=== PATIENT | male | born 1975 | race Caucasian/White ===

== ENCOUNTER 2020-05-24 00:46 | Emergency (ER) | payer OTHER ==
--- NOTE | 2020-05-24 01:50 | ER Document Report ---
ED Medical Screen (RME) - General Stated Complaint: PAIN LEFT SIDE OF BODY/LEFT ARM NUMBNESS Time Seen by Provider: 05/24/20 01:44 Mode of Arrival: Ambulatory Information source: Patient Notes: Patient is a 44-year-old male who is encouraged coming by his [id number] for worsening left arm numbness and worsening left leg pain. Patient states he has a history of a spinal surgery in the past and has had unexplained left arm numbness and pain in his left lower extremity. He notes that he has developed gradually a worsening of his numbness and a worsening of his lower extremity pain and notices that it is spastic and jerking. Notes that in [place] a few months ago he had a MRI of his cervical spine that was "the picture of health" patient notes that he is taking [place] but does not have any other medical problems. Patient states they normally give him IV Dilaudid in the hospital. General: Very uncomfortable appearing Cardiac: Tachycardia Pulmonary no respiratory distress Musculoskeletal "violent spastic motions of the left lower extremity also some dyskinetic movements of the left shoulder Psych: Odd affect I have greeted and performed a rapid initial assessment of this patient. A comprehensive ED assessment and evaluation of the patient, analysis of test results and completion of the medical decision making process will be conducted by additional ED providers. Physical Exam - Vital signs Vitals: Temp Pulse BP Pulse Ox 98 F 134 H 150/107 H 100 05/24/20 01:01 05/24/20 01:01 05/24/20 01:01 05/24/20 01:01 Course - Vital Signs Vital signs: Temp Pulse Resp BP Pulse Ox 98 F 134 H 150/107 H 100 05/24/20 01:01 05/24/20 01:01 05/24/20 01:01 05/24/20 01:01
[2020-05-24] MEDS ORDERED: OXYCODONE-ACETAMINOPHEN 5-325 MG TABLET PO ONE (01:52)
[2020-05-24 02:29] LABS: ABSOLUTE BASOPHILS # (AUTO) 0.1 10^3/uL (0.0-0.2); ABSOLUTE EOSINOPHILS # (AUTO) 0.1 10^3/uL (0.0-0.6); ABSOLUTE LYMPHOCYTES (AUTO) 1.7 10^3/uL (0.5-4.7); ABSOLUTE MONOCYTES (AUTO) 0.6 10^3/uL (0.1-1.4); ABSOLUTE NEUT (AUTO) 2.5 10^3/uL (1.7-8.2); BASOPHILS % (AUTO) 1.2 % (0-2); EOSINOPHILS % (AUTO) 1.1 % (0-6); HEMATOCRIT 40.1 % (37.9-51.0); HEMOGLOBIN 14.4 g/dL (13.5-17.0); LYMPHOCYTES % (AUTO) 34.9 % (13-45); MEAN CORPUSCULAR HEMOGLOBIN 34.3 pg (27.0-33.4); MEAN CORPUSCULAR VOLUME 95 fl (80-97); MONOCYTES % (AUTO) 12.1 % (3-13); PLATELET COUNT 190 10^3/uL (150-450); RED CELL DISTRIBUTION WIDTH 13.6 % (11.5-14.0); SEGMENTED NEUTROPHILS % (AUTO) 50.7 % (42-78); TOTAL CELLS COUNTED % (AUTO) 100 %; WHITE BLOOD COUNT 4.9 10^3/uL (4.0-10.5)
[2020-05-24 02:48] LABS: ALBUMIN 4.4 g/dL (3.5-5.0); ALKALINE PHOSPHATASE 85 U/L (38-126); ANION GAP 11 (5-19); ASPARTATE AMINO TRANSFERASE 134 U/L (17-59); BILIRUBIN,DIRECT 0.3 mg/dL (0.0-0.4); BILIRUBIN,TOTAL 0.6 mg/dL (0.2-1.3); BLOOD UREA NITROGEN 3 mg/dL (7-20); CALCIUM 9.4 mg/dL (8.4-10.2); CARBON DIOXIDE 22 mmol/L (22-30); CHLORIDE 99 mmol/L (98-107); GLUCOSE 97 mg/dL (75-110); POTASSIUM 4.4 mmol/L (3.6-5.0); TOTAL PROTEIN 6.4 g/dL (6.3-8.2)
[2020-05-24 02:50] LABS: APPEARANCE,URINE CLEAR; BILIRUBIN,URINE NEGATIVE (NEGATIVE); COLOR,URINE LIGHT YELLOW; GLUCOSE, URINE NEGATIVE (NEGATIVE); KETONES,URINE NEGATIVE (NEGATIVE)
[2020-05-24 02:51] LABS: PROTEIN,URINE NEGATIVE (NEGATIVE); URINE SPECIFIC GRAVITY 1.002; UROBILINOGEN,URINE NEGATIVE mg/dL (<2.0)
[2020-05-24 02:57] LABS: URINE AMPHETAMINES SCREEN NEGATIVE; URINE BARBITURATES SCREEN NEGATIVE; URINE BENZODIAZEPINES SCREEN NEGATIVE; URINE COCAINE SCREEN NEGATIVE; URINE MARIJUANA (THC) SCREEN NEGATIVE; URINE METHADONE SCREEN NEGATIVE; URINE PHENCYCLIDINE SCREEN NEGATIVE
--- NOTE | 2020-05-24 04:32 | ER Document Report ---
ED General - General Chief Complaint: Neck and Upper Back Pain Stated Complaint: PAIN LEFT SIDE OF BODY/LEFT ARM NUMBNESS Time Seen by Provider: 05/24/20 01:44 Mode of Arrival: Ambulatory - [facility] Notes: 44-year-old male presents with pain to his left lower extremity. Patient has just moved to the area from [place]. He states that 5 years ago he had a failed spinal surgery, he states that he had fragments in his back but no one knew where they came from. Since then he has had chronic pain to his lower back and left leg. He has been on [place] for the past 5 years. He states that he has been out of it for the past few days. He is now experiencing increasing pain from his baseline. He states that he feels muscle spasms. No loss of bowel or bladder control. He additionally states that his left arm has been numb for several years. He states that he has had multiple MRIs which do not show a finding. He has not yet established with a physician or pain management clinic down here. He reports a history of high blood pressure, however he was weaned off of his medications. - Related Data Allergies/Adverse Reactions: No Known Allergies Allergy (Unverified 05/24/20 04:52) Home Medications: norco Past Medical History - General Information source: Patient - Social History Smoking Status: Current Every Day Smoker Family History: None - Past Medical History Cardiac Medical History: Reports: Hx Hypertension Past Surgical History: Reports: Hx Tonsillectomy Review of Systems - Review of Systems Constitutional: denies: Fever EENT: No symptoms reported Cardiovascular: denies: Chest pain Respiratory: denies: Short of breath Gastrointestinal: No symptoms reported Genitourinary: No symptoms reported Musculoskeletal: Muscle pain Skin: No symptoms reported Neurological/Psychological: Numbness Physical Exam - Vital signs Vitals: Temp Pulse BP Pulse Ox 98 F 134 H 150/107 H 100 05/24/20 01:01 05/24/20 01:01 05/24/20 01:01 05/24/20 01:01 - General General appearance: Appears well, Alert In distress: None - HEENT Head: Normocephalic, Atraumatic Extraocular movements intact: Yes Pupils: PERRL - Respiratory Respiratory status: No respiratory distress - Cardiovascular Rhythm: Tachycardia - Back Back: Other - Healed midline lumbar surgical scar. No midline tenderness. Has tenderness present to left lateral musculature. - Extremities General upper extremity: Normal ROM General lower extremity: Normal ROM Notes: Patient moves left arm and left leg freely Has jerking type movements intermittently - Neurological Neuro grossly intact: Yes Cognition: Normal Orientation: AAOx4 Notes: During evaluation, patient standing in the room and intermittently pacing. He is able to put full weight on his lower extremities. Able to go from a sitting to standing to sitting position on the stretcher. He has intact motor and sensation to his upper and lower extremities. - Psychological Associated symptoms: Psychomotor agitation - Skin Skin Temperature: Warm Course - Re-evaluation Re-evalutation: 44-year-old male here with pain and numbness, chronic issues for him. He is new to the area, first time in our emergency department. Reportedly had a spinal surgery and has had chronic left lower back/leg pain and numbness for 5 years. Additionally has left arm numbness as well. On exam he has an odd affect, some agitation at times. He is able to stand and pace about the room, able to sit onto the bed. He does make these odd jerking like movements, he states that these are muscle spasms. He does not have any focal neuro deficits at this time . I would have a low suspicion for acute spinal cord pathology given his exam. Given that he has been on Rangeley for 5 years and has acutely stopped, I question whether there is an element of withdrawal taking place. However given that he is reporting severe pain, will give 1 dose of IV morphine. Will additionally give Valium to help with these ?muscle spasms. He is tachycardic, suspect this is related to pain. 05/24/20 05:51 Heart rate is now 85 05/24/20 06:15 No leukocytosis or left shift. No acute anemia. Electrolytes okay. TSH within normal limits. No UTI. UDS positive for opiates. Called to patient's room, he states he is feeling much better and is ready to go home. He looks very much improved. He is eating Pringles currently, he is no longer doing the abnormal jerking like movements. I discussed with him need to establish with pain management down here, I have given him contact information for 2 of the local clinics. Return precautions given, patient stable at time of discharge. - Vital Signs Vital signs: Temp Pulse Resp BP Pulse Ox 98 F 134 H 21 H 111/82 97 05/24/20 01:01 05/24/20 01:01 05/24/20 05:01 05/24/20 05:01 05/24/20 04:32 - Laboratory Result Diagrams: 05/24/20 02:18 05/24/20 02:18 Laboratory results interpreted by me: 05/24/20 05/24/20 02:18 02:18 RBC 4.20 L MCH 34.3 H Sodium 132.2 L BUN 3 L AST 134 H ALT 89 H Discharge - Discharge Clinical Impression: Muscle spasm Chronic pain Qualifiers: Chronic pain type: chronic pain syndrome Qualified Code(s): G89.4 - Chronic pain syndrome Condition: Stable Disposition: HOME, SELF-CARE Additional Instructions: [facility] pain management [address] [place] [id number], [facility] [address] [place] [address], [facility] [address] [place] [address] [place] [address], [facility] [email or web address] [place] [address] [place] [address]
[2020-05-24] MEDS ORDERED: MORPHINE SULFATE 10 MG/ML INJ IV ONE (04:45)
[2020-05-24] MEDS ORDERED: DIAZEPAM 5 MG TABLET PO ONE (04:46)
[2020-05-24] MEDS ORDERED: RINGERS SOLUTION,LACTATED 1,000 ML IV ONE (05:00)
[2020-05-24 06:30] VITALS: BP 130/93
--- NOTE | 2020-05-24 07:26 | EKG REPORT ---
SEVERITY:- BORDERLINE ECG - SINUS TACHYCARDIA PROBABLE LEFT ATRIAL ABNORMALITY : Confirmed by: Obinna Costello MD 24-May-2020 07:26:28
== END 2020-05-24 06:37 | disposition home or self-care (01) ==
LOC: ER 00:46
DX: M62.838 Other muscle spasm (principal); G89.4 Chronic pain syndrome; M54.2 Cervicalgia; M54.6 Pain in thoracic spine; R20.0 Anesthesia of skin; I10 Essential (primary) hypertension; F17.200 Nicotine dependence, unspecified, uncomplicated
CPT/HCPCS: 93005; 99285; 96361; 96374; 36415; 82550; 84443; 85025; 80053; 81001; 80307; 93010; J2270; J7120

== ENCOUNTER 2020-05-25 14:56 | Emergency (ER) | payer OTHER, MEDICAID ==
[2020-05-25] MEDS ORDERED: HYDROCODONE/ACETAMINOPHEN 5-325 MG TABLET PO ONE (15:47)
--- NOTE | 2020-05-25 15:52 | ER Document Report ---
ED Medical Screen (RME) - General Chief Complaint: Back Pain Stated Complaint: BACK PAIN,LEG PAIN Time Seen by Provider: 05/25/20 15:36 Mode of Arrival: Wheelchair Information source: Patient Notes: Patient presents complaining of back pain that radiates to the left lower extremity. Patient states he has chronic back pain but it worsened today. Patient denies any fever or urinary symptoms. Patient denies cough although is repeatedly coughing in triage. Patient states that he moved to this area about 5 months ago and never got established with a primary doctor or pain management doctor. Patient states he has been taking hydrocodone 10/325 6 tablets a day. Review of controlled substance database demonstrates that patient had a prescription for hydrocodone filled on 05/07/2020 for 30-day supply. Patient should really only be taking 4 tablets a day according to controlled substance database. I have greeted and performed a rapid initial assessment of this patient. A comprehensive ED assessment and evaluation of the patient, analysis of test results and completion of the medical decision making process will be conducted by additional ED providers. - Related Data Allergies/Adverse Reactions: No Known Allergies Allergy (Unverified 05/24/20 04:52) Past Medical History - Past Medical History Cardiac Medical History: Reports: Hx Hypertension Past Surgical History: Reports: Hx Tonsillectomy Physical Exam - Vital signs Vitals: Temp Pulse Resp BP Pulse Ox 98.6 F 102 H 16 155/98 H 100 05/25/20 15:12 05/25/20 15:12 05/25/20 15:12 05/25/20 15:12 05/25/20 15:12 - General General appearance: Alert, Anxious Notes: Patient jerking in wheelchair, patient with exaggerated pain response with palpation anywhere to his back. - Respiratory Respiratory status: No respiratory distress Breath sounds: Nonproductive cough Course - Re-evaluation Re-evalutation: 05/25/20 15:52 Patient did not mention to provider that he was just here yesterday. - Vital Signs Vital signs: Temp Pulse Resp BP Pulse Ox 98.6 F 102 H 16 155/98 H 100 05/25/20 15:12 05/25/20 15:12 05/25/20 15:12 05/25/20 15:12 05/25/20 15:12
--- NOTE | 2020-05-25 16:31 | ER Document Report ---
ED Neck/Back Problem - General Chief Complaint: Back Pain Stated Complaint: BACK PAIN,LEG PAIN Time Seen by Provider: 05/25/20 15:36 Mode of Arrival: Wheelchair Notes: CHIEF COMPLAINT: Chronic pain HPI: 44-year-old male seen yesterday in the emergency department for chronic pain lower back. Patient with 5-year history of chronic low back pain. Radiation down the left leg with no incontinence of urine or bowel over the last several days. States he has never been placed on steroids. Patient has been following with a primary pain management doctor in [place] and moved down here 2 months ago did not establish with a primary or pain management doctor here. Patient was told last night that he needed to get a pain management physician and was referred to 1 states he cannot get in for 2 weeks as they are waiting on records so now presents again with the same pain he had yesterday. Patient states he has had a slight tickle in his throat from congestion but does not want COVID testing stating that he had a COVID test 2 months ago that was negative ROS: See HPI - all other systems were reviewed and are otherwise negative Constitutional: no fever Eyes: no drainage, no blurred vision ENT: no runny nose, no sore throat Cardiovascular: no chest pain Resp: no SOB, no cough GI: no vomiting, no diarrhea, no abdominal pain : no dysuria Integumentary: no rash Allergy: no hives Musculoskeletal: Positive chronic back and leg pain Neurological: no numbness/tingling, no weakness MEDICATIONS: I agree with the patient medications as charted by the RN. ALLERGIES: I agree with the allergies as charted by the RN. PAST MEDICAL HISTORY/PAST SURGICAL HISTORY: Reviewed and agree as charted by RN. SOCIAL HISTORY: Reviewed and agree as charted by RN. FAMILY HISTORY: No significant familial comorbid conditions directly related to patient complaint EXAM: Reviewed vital signs as charted by RN. CONSTITUTIONAL: Alert and oriented and responds appropriately to questions. Well-appearing; cachectic appearing HEAD: Normocephalic; atraumatic EYES: PERRL; Conjunctivae clear, sclerae non-icteric ENT: normal nose; no rhinorrhea; moist mucous membranes NECK: Supple without meningismus; non-tender; no cervical lymphadenopathy, no masses CARD: RRR; no murmurs, no clicks, no rubs, no gallops; symmetric distal pulses RESP: Normal chest excursion without splinting or tachypnea; breath sounds clear and equal bilaterally; no wheezes, no rhonchi, no rales, pulse oximetry 98% on room air not hypoxic ABD/GI: Normal bowel sounds; non-distended; soft, non-tender, no rebound, no guarding; no palpable organomegaly or masses. BACK: The back appears normal tender to palpation in the left lower lumbar back into the left gluteal region. Patient somewhat exaggerated in his response to palpation EXT: Normal ROM in all joints; non-tender to palpation; no cyanosis, no effusions, no edema SKIN: Normal color for age and race; warm; dry; good turgor; no acute lesions noted NEURO: Moves all extremities equally; Motor and sensory function intact. Strength equal 5/5 bilateral lower extremities. Sensation intact and equal bilateral lower extremities. Straight leg raise is negative. No saddle anesthesia on exam. DTRs 2+ intact and equal bilateral lower extremities. Patient does have some jerking motions periodically states these are muscle spasm PSYCH: The patient's mood and manner are appropriate. Grooming and personal hygiene are appropriate. MDM: 44-year-old male requesting pain management. Was seen last night although he told me it was 3 to 4 days ago. Patient with chronic pain issues, review of [employer] aware by the triage process showed that patient had filled a prescription for 30 days of hydrocodone 10 4 times daily, patient states has been out of his medication indicating he has been overusing his medications. This was discussed with the patient last night as well by the provider that saw the patient. They did feel the patient might have been in withdrawal. I spoke with the patient at length, made him aware that we treat acute problems in the emergency department we do not treat chronic pain issues. Patient is aware he will not receive any further narcotics from the emergency department for chronic pain issues and needs to establish with a PCP or pain management or orthopedic physician. I will give him referrals to all of these. I will treat the patient's pain today. Patient will be given a 1 day prescription for hydrocodone. He is aware that we will not write him further prescriptions for narcotics. - Related Data Allergies/Adverse Reactions: No Known Allergies Allergy (Unverified 05/24/20 04:52) Past Medical History - General Information source: Patient - Social History Smoking Status: Current Every Day Smoker Family History: None - Past Medical History Cardiac Medical History: Reports: Hx Hypertension Past Surgical History: Reports: Hx Tonsillectomy Physical Exam - Vital signs Vitals: Temp Pulse Resp BP Pulse Ox 98.6 F 102 H 16 155/98 H 100 05/25/20 15:12 05/25/20 15:12 05/25/20 15:12 05/25/20 15:12 05/25/20 15:12 Course - Re-evaluation Re-evalutation: 05/25/20 17:11 Requested to speak with the patient just prior to medication administration. Patient was unhappy that he was receiving medications that were not intravenous he is specifically asking for Dilaudid. I informed the patient that we are appropriately treating his pain at this time. Patient has been supposedly in town for 2 months and has not bothered to establish with a primary provider and is also overused his narcotic medications he was previously being prescribed. Patient is aware that we do not have to prescribe him narcotic medication but I am willing to give him 1 to 2 days of medication to help him with his acute pain. I informed the patient that he will receive steroids, short course of pain medications here we will not give them IV as I believe given his longstanding pain issues intramuscular and oral are appropriate for this patient at this time. - Vital Signs Vital signs: Temp Pulse Resp BP Pulse Ox 98.6 F 102 H 16 155/98 H 100 05/25/20 15:12 05/25/20 15:12 05/25/20 15:12 05/25/20 15:12 05/25/20 15:12 Discharge - Discharge Clinical Impression: Chronic pain Qualifiers: Chronic pain type: chronic pain syndrome Qualified Code(s): G89.4 - Chronic pain syndrome Sciatica Qualifiers: Laterality: left Qualified Code(s): M54.32 - Sciatica, left side Condition: Stable Disposition: HOME, SELF-CARE Additional Instructions: Take the medications as prescribed. You must follow-up with either orthopedics, primary care or pain management for further narcotic prescriptions for your chronic back pain issues. It is more appropriate that you have a primary provider prescribed these kinds of medications for you as we are limited in what we will be able to provide for you in the emergency department. Prescriptions: Prednisone [Deltasone 20 mg Tablet] 2 tab PO DAILY 5 Days #10 tablet Hydrocodone/Acetaminophen [[place] 5-325 mg Tablet] 1 tab PO Q4 PRN #15 tablet PRN Reason: Referrals: ELOY GALEANA MD [ACTIVE STAFF] - Follow up as needed RYAN PARRISH MD [ACTIVE STAFF] - Follow up as needed
[2020-05-25] MEDS ORDERED: KETOROLAC TROMETHAMINE 60 MG/2 ML SDV IM ONE (16:34)
[2020-05-25] MEDS ORDERED: PREDNISONE 20 MG TABLET PO ONE (16:34)
--- NOTE | 2020-05-25 16:59 | RADIOLOGY REPORT (SQ) ---
EXAM DESCRIPTION: CHEST SINGLE VIEW IMAGES COMPLETED DATE/TIME: 05/25/2020 4:51 pm REASON FOR STUDY: COUGH COMPARISON: None. EXAM PARAMETERS: NUMBER OF VIEWS: One view. TECHNIQUE: Single frontal radiographic view of the chest acquired. RADIATION DOSE: NA LIMITATIONS: None. FINDINGS: LUNGS AND PLEURA: No opacities, masses or pneumothorax. No pleural effusion. MEDIASTINUM AND HILAR STRUCTURES: No masses. Contour normal. HEART AND VASCULAR STRUCTURES: Heart normal in size. Normal vasculature. BONES: No acute findings. HARDWARE: None in the chest. OTHER: No other significant finding. IMPRESSION: No focal consolidation or other evidence of acute intrathoracic process. TECHNICAL DOCUMENTATION: JOB ID: [id number] 2010 [employer]- All Rights Reserved Reading location - IP/workstation name: [email or web address]
[2020-05-25 17:24] VITALS: BP 150/112
== END 2020-05-25 17:43 | disposition home or self-care (01) ==
LOC: ER 14:56
DX: G89.4 Chronic pain syndrome (principal); M54.32 Sciatica, left side
CPT/HCPCS: 99284; 96372; 71045; J1885; J7512

== ENCOUNTER 2020-05-28 12:38 | Emergency (ER) | payer OTHER, MEDICAID ==
[2020-05-28] MEDS ORDERED: KETOROLAC TROMETHAMINE 60 MG/2 ML SDV IM ONE (13:40)
[2020-05-28] MEDS ORDERED: HYDROCODONE/ACETAMINOPHEN 5-325 MG TABLET PO ONE (13:40)
[2020-05-28] MEDS ORDERED: METHOCARBAMOL 500 MG TABLET PO ONE (13:40)
--- NOTE | 2020-05-28 13:46 | ER Document Report ---
HPI - HPI Patient complains to provider of: Chronic back pain, chronic muscle spasms, on pain management Time Seen by Provider: 05/28/20 13:30 Onset: Other - Chronic Onset/Duration: Persistent Quality of pain: Sharp Severity: Moderate Pain Level: 3 Context: 44-year-old male presented to ED for chronic back pain chronic muscle spasms and nerve damage due to chronic back pain. He states he is on pain management from his primary care doctor where he moved from and is just moved to the area. He states he can get his pain medicine tomorrow but he does not have anything today. He states he does smoke a pack a day drinks alcohol every other day but does not use any illicit drugs. He states where he is from the primary care takes care of his medicines and gives him's medicines for his symptoms. I explained to him in the emergency room in [place] we do not give prescriptions for narcotics for chronic pain management. He states he does have an appointment to get his pain medicines tomorrow. I did agree to give him 1 [place] 1 Toradol injection and 1 Robaxin then he needs to use his medicines he is getting tomorrow. Associated Symptoms: Shortness of breath, Other - Chronic back pain chronic spasms Exacerbated by: Denies Relieved by: Denies Similar symptoms previously: Yes Recently seen / treated by doctor: Yes - ROS ROS below otherwise negative: Yes - CONSTITUTIONAL Constitutional: DENIES: Fever, Chills - EENT EENT: DENIES: Sore Throat, Ear Pain, Nasal Drainage-Clear, Nasal Drainage- Purulent, Congestion, Eye problems - NEURO Neurology: DENIES: Headache, Weakness, Vision blurred, Dizzinesss / Vertigo - CARDIOVASCULAR Cardiovascular: DENIES: Chest pain - RESPIRATORY Respiratory: DENIES: Trouble Breathing, Coughing - GASTROINTESTINAL Gastrointestinal: DENIES: Abdominal Pain, Nausea, Patient vomiting, Diarrhea, Constipation, Black / Bloody Stools - URINARY Urinary: DENIES: Dysuria, Urgency, Frequency - REPRODUCTIVE Reproductive: DENIES: :, Postmenopausal, Abnormal bleeding / discharge - MUSCULOSKELETAL Musculoskeletal: REPORTS: Extremity pain, Back Pain - DERM Skin Color: Normal Skin Problems: None Past Medical History - General Information source: Patient - Social History Smoking Status: Current Every Day Smoker Cigarette use (# per day): Yes - Pack per day Smoking Education Provided: Yes - 3 minutes Frequency of alcohol use: Heavy - 3 other day Drug Abuse: None Lives with: Family Family History: None Patient has suicidal ideation: No Patient has homicidal ideation: No - Past Medical History Cardiac Medical History: Reports: Hx Hypertension Pulmonary Medical History: Reports: None EENT Medical History: Reports: None Neurological Medical History: Reports: None Endocrine Medical History: Reports: None Renal/ Medical History: Reports: None Malignancy Medical History: Reports None GI Medical History: Reports: None Musculoskeletal Medical History: Reports Hx Arthritis, Reports Hx Musculoskeletal Deformity, Reports Hx Musculoskeletal Trauma Skin Medical History: Reports None Psychiatric Medical History: Reports: None Traumatic Medical History: Reports: None Infectious Medical History: Reports: None Past Surgical History: Reports: Hx Tonsillectomy Vertical Provider Document - CONSTITUTIONAL Agree With Documented VS: Yes Exam Limitations: Physical Impairment General Appearance: WD/WN - Tonic - INFECTION CONTROL TRAVEL OUTSIDE OF THE [place] IN LAST 30 DAYS: No - HEENT HEENT: Atraumatic, Normal ENT Exam, Normocephalic - NECK Neck: Normal Inspection - RESPIRATORY Respiratory: Breath Sounds Normal, No Respiratory Distress - CARDIOVASCULAR Cardiovascular: Regular Rate, Regular Rhythm, No Murmur - MUSCULOSKELETAL/EXTREMETIES Musculoskeletal/Extremeties: Tender Notes: Chronic pain management for his chronic back pain and chronic spasms. He states he usually gets his medicines from his primary care doctor but he has moved to the area and is establishing with a pain management here. He states he is supposed to get all his medicines tomorrow but does not have anything to take today. States he does not have any new symptoms these are all his normal symp toms. - NEURO Level of Consciousness: Awake, Alert, Appropriate Notes: He does have tremors to both hands. He states these are his normal tremors. He states the back pain is the pain that he has all the time he just usually gets higher doses of narcotics. He states he also takes muscle relaxers. - DERM Integumentary: Warm, Dry, No Rash Course - Vital Signs Vital signs: Temp Pulse Resp BP Pulse Ox 98.5 F 94 20 152/92 H 100 05/28/20 12:49 05/28/20 12:49 05/28/20 12:49 05/28/20 12:49 05/28/20 12:49 Discharge - Discharge Clinical Impression: Muscle spasm Chronic pain Qualifiers: Chronic pain type: chronic pain syndrome Qualified Code(s): G89.4 - Chronic pain syndrome Sciatica Qualifiers: Laterality: left Qualified Code(s): M54.32 - Sciatica, left side Condition: Stable Disposition: HOME, SELF-CARE Additional Instructions: Chronic Pain Control Stress, inactivity, and depression make pain more severe regardless of the cause of the pain. Stress and poor physical condition can cause pain such as headaches and backache. Relaxation: Rest in a quiet place with your eyes closed for 20 minutes twice daily. Concentrate on a pleasant image, or simply "feel" your breathing. Clear your mind. Stress management: Deal with your "stressors." Either take action, or eliminate the stressor from your life. Don't let things hang over you. Accept those things you can't change. Nutrition: Eat small, balanced meals -- don't skip, don't overeat. Meals should be high-carbohydrate, low-sugar, low-fat. Exercise: Exercise helps painful conditions and eases stress. Get 30 minutes of moderate exercise, five days a week. Do an activity that does not flare your pain. Precautions: Pain which continues to disrupt daily activities, or which changes in nature, requires a medical evaluation. Pain Clinic referral is available. We do not manage chronic pain in the Emergency Department. We will try to appropriately help you through an acute flare of your chronic painful condition, but for on-going chronic pain that does not improve, you will need to see your private doctor or animated cartoons painter. We do not provide repeated medication management of chronic painful conditions. If you wish, we can provide the name of local pain management physicians. Chronic Back Pain Chronic back pain (pain persisting longer than three months) is a common problem. A medical evaluation can look for herniated disc, arthritis, oste oporosis, tumors, and infections. But at least half the time, there's no obvious treatable cause. Anxiety and depression tend to worsen back pain. Ibuprofen or other anti-inflammatory medicine can help. A heating pad, used for 15-20 minutes at a time, can ease pain. For this type of back pain, narcotic medicines should be avoided. Muscle relaxers are rarely helpful unless you're having spasms. Activity is important. Find an aerobic exercise program that your back can tolerate. Too much rest makes back pain worse. Specific back exercises are usually prescribed to strengthen the back and abdominal muscles. Often, a physical therapist can help. Avoid heavy lifting, working while bent over, or standing with both knees straight. Most back pain patients do better with a firm mattress. If new symptoms of a "herniated disc" (radiation of pain, numbness, or tingling down the back of the leg or weakness in the leg) occur, you should be re-examined. Myofascial Pain Myofascial pain syndrome is chronic or recurring muscle pain. The pain can be aching, cramping, or burning. Sometimes tingling and numbness accompanies the pain. It most often affects the neck, upper back, and shoulders. Pain may radiate into the arms and hands. The pain has no clear-cut explanation. It may begin with an injury, but we don't know why the pain continues. Myofascial pain syndrome may become worse with stress, anxiety, or emotional upset, or after over-use of the muscles. The symptoms will usually go away with time, but sometimes this takes weeks or months. Rest the area when there is a flair of pain. Either cold packs or heat can reduce spasm and pain. Antiinflammatory medication such as ibuprofen can help reduce pain and inflammation. Keep your body in good physical condition by getting enough exercise. Stretching exercises of the involved muscles can help. Call the doctor or return if pain becomes severe, or if you develop new symptoms. Oral Narcotic Medication You have been given a [place] for pain control. This medication is a narcotic. It's best taken with food, as nausea can result if taken on an empty stomach. Don't operate machinery or drive within six hours of taking this medication. Do not combine this medicine with alcohol, or with any medication which can cause sedation (such as cold tablets or sleeping pills) unless you get permission from the physician. Narcotics tend to cause constipation. If possible, drink plenty of fluids and eat a diet high in fiber and fruits. Muscle Relaxers Muscle relaxing medications are usually prescribed for acute muscle spasm or injury to the neck and back. They are often combined with antiinflammatory pain medication for increased relief. You may stop the muscle relaxer when the pain and stiffness have improved. Start the medication again if spasms recur. Muscle relaxers may cause drowsiness, especially with the first dose. Do not operate machinery or drive while under the effects of the medication. Most muscle relaxers last up to 24 hours. Do not combine the medication with alcohol. Toradol Injection You have been given an injection of ketorolac tromethamine (Toradol). This is an excellent, safe drug for pain control. It also has potent antiinflammatory action. You should have significant pain relief within about one hour. Toradol is not addicting and is non-sedating. It does not interfere with driving or work. Call or return if you develop itching, hives, shortness of breath, or rash. Ice Packs Apply ice packs frequently against the painful area. Many different schedules are recommended, such as "20 minutes on, 20 minutes off" or "one hour ice, two hours rest." If you need to work, you may need to go longer between ice treatments. You should plan to have the area ice packed AT LEAST one fourth of the time. The ice should be applied over the wrap, tape, or splint, or over a layer of cloth -- not directly against the skin. Some ice bags have a built-in cloth and can be put directly on the skin. Warm Packs After approximately two days, apply gentle heat (such as a heating pad or hot water bottle) for about 20 to 30 minutes about every two hours -- at least four times daily. Warmth and elevation will help you make a more rapid recovery, and will ease the pain considerably. Do not use HOT heat, and never apply heat for longer than 30 minutes. The continuous heat can invisibly damage skin and muscles -- even when no burn is seen on the surface. Damaged muscles can make you MORE sore. FOLLOW-UP CARE: If you have been referred to a physician for follow-up care, call the physicians office for an appointment as you were instructed or within the next two days. If you experience worsening or a significant change in your symptoms, notify the physician immediately or return to the Emergency Department at any time for re-evaluation. Please follow-up with the pain management that she states you have established with. Forms: Elevated Blood Pressure, Smoking Cessation Education
[2020-05-28 14:02] VITALS: BP 150/89
== END 2020-05-28 14:02 | disposition home or self-care (01) ==
LOC: ER 12:38
DX: G89.4 Chronic pain syndrome (principal); M62.838 Other muscle spasm; M54.32 Sciatica, left side; M54.9 Dorsalgia, unspecified; I10 Essential (primary) hypertension; F17.210 Nicotine dependence, cigarettes, uncomplicated; Z71.6 Tobacco abuse counseling
CPT/HCPCS: 99284; 96372; J1885

== ENCOUNTER 2020-07-09 16:01 | Emergency (ER) | payer OTHER, MEDICAID ==
--- NOTE | 2020-07-09 16:32 | RADIOLOGY REPORT (SQ) ---
EXAM DESCRIPTION: CT HEAD WITHOUT IMAGES COMPLETED DATE/TIME: 07/09/2020 4:19 pm REASON FOR STUDY: unilateral altered sensation COMPARISON: None. TECHNIQUE: Axial images acquired through the brain without intravenous contrast. Images reviewed wi th bone, brain and subdural windows. Additional sagittal and coronal reconstructions were generated. Images stored on PACS. All CT scanners at this facility use dose modulation, iterative reconstruction, and/or weight based d osing when appropriate to reduce radiation dose to as low as reasonably achievable (ALARA). [facility]: Dose Right [facility]: CareDose [facility]: Dose Right [facility]: Teradose 4D [facility]: [employer] LIMITATIONS: None. FINDINGS: There is no acute intracranial hemorrhage, vascular territorial infarct, extra-axial fluid collection, mass effect or midline shift. The birch-white matter differentiation is preserved. The caliber of the ventricles is concordant with the degree of sulcation. There is no effacement of the cerebral sulci or basal subarachnoid cisterns. The orbits and globes are intact. The paranasal sinuses and the mastoid air cells are clear. There is no fracture of the calvarium. IMPRESSION: No acute intracranial abnormality. EVIDENCE OF ACUTE STROKE: NO. COMMENT: Quality ID # [id number]: Final reports with documentation of one or more dose reduction techniques (e.g., Automated exposure control, adjustment of the mA and/or kV according to patient size, use of iterative reconstruction technique) TECHNICAL DOCUMENTATION: JOB ID: [id number] 2010 [employer]- All Rights Reserved Reading location - IP/workstation name: [email or web address]
--- NOTE | 2020-07-09 16:47 | RADIOLOGY REPORT (SQ) ---
EXAM DESCRIPTION: CT CERVICAL SPINE WITHOUT IMAGES COMPLETED DATE/TIME: 07/09/2020 4:21 pm REASON FOR STUDY: trauma COMPARISON: None. TECHNIQUE: Axial images acquired through the cervical spine without intravenous contrast. Images re viewed with lung, soft tissue and bone windows. Reconstructed coronal and sagittal MPR images review ed. Images stored on PACS. All CT scanners at this facility use dose modulation, iterative reconstruction, and/or weight based d osing when appropriate to reduce radiation dose to as low as reasonably achievable (ALARA). [facility]: Dose Right [facility]: CareDose [facility]: Dose Right [facility]: Teradose 4D [facility]: [employer] RADIATION DOSE: CT Rad equipment meets quality standard of care and radiation dose reduction techniq ues were employed. CTDIvol: 13.6 mGy. DLP: 271 mGy-cm. LIMITATIONS: None. FINDINGS: ALIGNMENT: Anatomic. MINERALIZATION: Normal. VERTEBRAL BODIES: Variant os terminale. The cervical vertebral body heights are preserved. There is no fracture. DISCS: Anterolateral osteophytes from C2-C3 to C6-C7. The intervertebral disc spaces are preserved. FACETS, LATERAL MASSES, POSTERIOR ELEMENTS: Degeneration of the the set joints and uncovertebral hype rtrophy resulting in varying degrees of moderate to severe foraminal stenosis bilaterally from C3-C4 to C5-C6. HARDWARE: None in the spine. VISUALIZED RIBS: No fractures. LUNG APICES AND SOFT TISSUES: The thyroid gland is heterogeneous. OTHER: No other findings. IMPRESSION: No acute fracture or malalignment of the cervical spine. TECHNICAL DOCUMENTATION: JOB ID: [id number] Quality ID # [id number]: Final reports with documentation of one or more dose reduction techniques (e.g., Au tomated exposure control, adjustment of the mA and/or kV according to patient size, use of iterative reconstruction technique) 2010 [employer]- All Rights Reserved Reading location - IP/workstation name: [email or web address]
[2020-07-09 16:56] LABS: ABSOLUTE EOSINOPHILS # (AUTO) 0.1 10^3/uL (0.0-0.6); ABSOLUTE LYMPHOCYTES (AUTO) 1.4 10^3/uL (0.5-4.7); ABSOLUTE MONOCYTES (AUTO) 0.6 10^3/uL (0.1-1.4); ABSOLUTE NEUT (AUTO) 3.2 10^3/uL (1.7-8.2); BASOPHILS % (AUTO) 0.9 % (0-2); HEMATOCRIT 43.8 % (37.9-51.0); HEMOGLOBIN 14.8 g/dL (13.5-17.0); LYMPHOCYTES % (AUTO) 26.5 % (13-45); MEAN CORPUSCULAR HGB CONC 33.9 g/dL (32.0-36.0); MEAN CORPUSCULAR VOLUME 98 fl (80-97); MONOCYTES % (AUTO) 11.5 % (3-13); PLATELET COUNT 197 10^3/uL (150-450); RED BLOOD COUNT 4.49 10^6/uL (4.35-5.55); RED CELL DISTRIBUTION WIDTH 12.4 % (11.5-14.0); SEGMENTED NEUTROPHILS % (AUTO) 60.1 % (42-78); TOTAL CELLS COUNTED % (AUTO) 100 %; WHITE BLOOD COUNT 5.3 10^3/uL (4.0-10.5)
[2020-07-09 17:04] LABS: INTERNATIONAL RATION (INR) 0.84; PROTHROMBIN TIME 11.7 SEC (11.4-15.4)
[2020-07-09 17:05] LABS: PARTIAL THROMBOPLASTIN TIME 30.6 SEC (23.5-35.8)
[2020-07-09 17:19] LABS: ALBUMIN 4.4 g/dL (3.5-5.0); ALCOHOL 48 mg/dL (NONE DETECTED); ALKALINE PHOSPHATASE 96 U/L (38-126); ANION GAP 10 (5-19); ASPARTATE AMINO TRANSFERASE 83 U/L (17-59); BILIRUBIN,DIRECT 0.2 mg/dL (0.0-0.4); BILIRUBIN,TOTAL 0.9 mg/dL (0.2-1.3); BLOOD UREA NITROGEN 3 mg/dL (7-20); CALCIUM 10.1 mg/dL (8.4-10.2); CARBON DIOXIDE 22 mmol/L (22-30); CHLORIDE 103 mmol/L (98-107); GLUCOSE 92 mg/dL (75-110); POTASSIUM 3.8 mmol/L (3.6-5.0); TOTAL PROTEIN 6.9 g/dL (6.3-8.2)
[2020-07-09] MEDS ORDERED: OXYCODONE-ACETAMINOPHEN 5-325 MG TABLET PO ONE (17:39)
[2020-07-09] MEDS ORDERED: KETOROLAC TROMETHAMINE 60 MG/2 ML SDV IM ONE (17:39)
--- NOTE | 2020-07-09 18:17 | RADIOLOGY REPORT (SQ) ---
EXAM DESCRIPTION: CHEST SINGLE VIEW IMAGES COMPLETED DATE/TIME: 07/09/2020 5:32 pm REASON FOR STUDY: left side numbness COMPARISON: 05/25/2020 EXAM PARAMETERS: NUMBER OF VIEWS: One view. TECHNIQUE: Single frontal radiographic view of the chest acquired. RADIATION DOSE: NA LIMITATIONS: None. FINDINGS: LUNGS AND PLEURA: No opacities, masses or pneumothorax. No pleural effusion. MEDIASTINUM AND HILAR STRUCTURES: No masses. Contour normal. HEART AND VASCULAR STRUCTURES: Heart normal in size. Normal vasculature. BONES: No acute findings. HARDWARE: None in the chest. OTHER: No other significant finding. IMPRESSION: NO ACUTE RADIOGRAPHIC FINDING IN THE CHEST. TECHNICAL DOCUMENTATION: JOB ID: [id number] 2010 [employer]- All Rights Reserved Reading location - IP/workstation name: [email or web address]
--- NOTE | 2020-07-09 18:19 | RADIOLOGY REPORT (SQ) ---
EXAM DESCRIPTION: L SPINE WHOLE IMAGES COMPLETED DATE/TIME: 07/09/2020 5:32 pm REASON FOR STUDY: trauma COMPARISON: None. NUMBER OF VIEWS: Five views including obliques. TECHNIQUE: AP, lateral, oblique, and sacral radiographic images acquired of the lumbar spine. LIMITATIONS: None. FINDINGS: MINERALIZATION: Normal. SEGMENTATION: Normal. No transitional anatomy. ALIGNMENT: Normal. VERTEBRAE: Maintained height. No fracture or worrisome bone lesion. DISCS: There is mild disc narrowing at L5-S1. Small marginal osteophytes are seen at several levels. POSTERIOR ELEMENTS: Pedicles and facets are intact. No pars defect or posterior arch defects. HARDWARE: None in the spine. PARASPINAL SOFT TISSUES: Normal. PELVIS: Intact as visualized. No fractures or worrisome bone lesions. SI joints intact. OTHER: No other significant finding. IMPRESSION: Mild degenerative disc disease. Mild spondylosis. TECHNICAL DOCUMENTATION: JOB ID: [id number] 2010 [employer]- All Rights Reserved Reading location - IP/workstation name: [email or web address]
--- NOTE | 2020-07-09 18:23 | ER Document Report ---
ED General - General Chief Complaint: Back Pain Stated Complaint: BACK PAIN Time Seen by Provider: 07/09/20 16:21 TRAVEL OUTSIDE OF THE [place] IN LAST 30 DAYS: No - HPI Notes: Chief complaint: Pain in neck, lower back and left shoulder and impaired sensation and use of left arm History of present illness: 44-year-old male scented to the emergency department complaining of sudden onset of paralysis and loss of sensation in his left upper extremity and left leg which developed about 20 minutes prior to arrival here while he was vigorously swinging a golf club. He states that he has had chronic problems with his neck and lower back and has had previous surgery on his lower back and has been prone to recurrent episodes of this sort since that time. He was being seen by pain management physician where he was previously living in [place]. He has been down here for several months and has not yet gotten a primary care physician. He has made to prior ED visits with similar presentations and both times has had a paucity of objective findings. He says he regularly takes [place] and Flexeril and reports he is been out of both for the last 3 days. He is a cigarette smoker. He denies use of alcohol. He denies use of illicit drugs. 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 He indicates he was previously being treated by pain management physician and that he has been experiencing recurrent episodes of similar symptoms for approximately 5 years. He states that 5 years ago he had a failed spinal surgery, he states that he had fragments in his back but no one knew where they came from. Since then he has had chronic pain to his lower back and left leg. He has been on [place] for the past 5 years. He states that he has been out of it for the past few days. He is now experiencing increasing pain from his baseline. He states that he feels muscle spasms. No loss of bowel or bladder control. He additionally states that his left arm has been numb for several years. He states that he has had multiple MRIs which do not show a finding. He has not yet established with a physician or pain management clinic down here. - Related Data Allergies/Adverse Reactions: No Known Allergies Allergy (Unverified 05/24/20 04:52) Past Medical History - General Information source: Patient, [facility] Records - Social History Smoking Status: Current Every Day Smoker Frequency of alcohol use: None Drug Abuse: None Lives with: Alone Family History: None - Past Medical History Cardiac Medical History: Reports: Hx Hypertension Musculoskeletal Medical History: Reports Hx Arthritis, Reports Hx Musculoskeletal Deformity, Reports Hx Musculoskeletal Trauma Past Surgical History: Reports: Hx Tonsillectomy Review of Systems - Review of Systems Notes: Constitutional: Negative for fever. HENT: Negative for sore throat. Eyes: Negative for visual changes. Cardiovascular: Negative for chest pain. Respiratory: Negative for shortness of breath. Gastrointestinal: Negative for abdominal pain, vomiting or diarrhea. Genitourinary: Negative for dysuria. Musculoskeletal: As per HPI. Skin: Negative for rash. Neurological: As per HPI . 10 point ROS negative except as marked above and in HPI. Physical Exam - Vital signs Vitals: Temp Pulse Resp BP Pulse Ox 98.3 F 81 16 141/93 H 98 07/09/20 19:49 07/09/20 19:49 07/09/20 19:49 07/09/20 19:49 07/09/20 19:49 - Notes Notes: GENERAL: Slender middle-age male who is holding his left upper extremity close to his trunk with elbow flexed at 90 degrees and left hand and wrist in a drop position. SKIN: Good turgor no rashes. HEAD: Normocephalic atraumatic. EYES: PERRLA. EOMI. Conjunctivae and sclerae clear. EARS: CANALS AND TMS CLEAR. NOSE: CLEAR. MOUTH: Moist mucosa. Good dentition. No stridor or edema. No drooling. NECK: Supple. No masses or thyromegaly. No adenopathy. Carotids 2+ without bruits. No JVD. BACK: Symmetrical without tenderness. CHEST: Respirations unlabored. Breath sounds clear and symmetrical. HEART: Regular rhythm. No murmur gallop or rub. ABDOMEN: Soft nontender without masses, organomegaly or rebound. Bowel sounds normally active. No bruits. GENITALIA: Deferred. EXTREMITIES: Patient initially complained of pain with active or passive movement of his left shoulder and left elbow but after initial treatment for his muscular spasm he is moving all 4 extremities without difficulty. No edema. No calf tenderness. Cap refill less than 1.5 seconds. Dorsalis pedis and posterior tibial pulses 3+ and symmetrical. NEUROLOGICAL: GCS 15. Alert and oriented x3. Normal gait. Fluent speech. Molded Candles Wicker nial nerves II through XII intact. Patient initially claimed to have no motor function on the left side of his body. When I distracted him he began using both his left arm and left leg appropriately. He then complained of spasm and discomfort when I pressed on these areas. I see no redness or swelling. Normal tone. Patient exhibits some intermittent tic of his left upper extremity and I noticed that this is been described by multiple examiners on previous visits. PSYCHIATRIC: Flat affect. Course - Re-evaluation Re-evalutation: 07/09/20 20:43 This gentleman was initially presented to me by the charge nurse as a possible "code stroke". I very quickly determined that this was not likely to be a true CVA and his perceived sensorimotor impairments were probably principally manifestation of muscular spasm. We treated him symptomatically and he rapidly improved. Head CT and CT of the C-spine were unremarkable per radiologist. He has some degenerative changes in lumbar area on plain films. Chest x-ray is unremarkable. Labs are unremarkable here. His urine drug screen was positive for narcotic analgesic consistent with his history. I think this man has episodes of chronic recurrent muscular spasm associated with his chronic pain syndrome. I talked with him at some length about the importance of seeking out a primary care physician. I have written him a week supply of medications and told him that we will not continue to refill his medications through the ED and that he must seek out appropriate primary care and/or pain management physicians. Findings, clinical impression and plan of treatment have been discussed with patient/family. Understanding of current findings and recommendations has been acknowledged by them and there is agreement regarding disposition and follow-up. - Vital Signs Vital signs: Temp Pulse Resp BP Pulse Ox 98.3 F 81 16 141/93 H 98 07/09/20 19:49 07/09/20 19:49 07/09/20 19:49 07/09/20 19:49 07/09/20 19:49 - Laboratory Result Diagrams: 07/09/20 16:39 07/09/20 16:39 Laboratory results interpreted by me: 07/09/20 07/09/20 07/09/20 16:39 16:39 18:10 MCV 98 H Sodium 134.8 L BUN 3 L AST 83 H Urine Ketones TRACE H - Diagnostic Test Radiology reviewed: Image reviewed, Reports reviewed Radiology results interpreted by me: 07/09/20 18:[address] 07/09/20 00:00 IMPRESSION: No acute intracranial abnormality. EVIDENCE OF ACUTE STROKE: NO. Cervical Spine CT 07/09/20 16:14 IMPRESSION: No acute fracture or malalignment of the cervical spine. Chest X-Ray 07/09/20 16:15 IMPRESSION: NO ACUTE RADIOGRAPHIC FINDING IN THE CHEST. Lumbar Spine X-Ray 07/09/20 16:17 IMPRESSION: Mild degenerative disc disease. Mild spondylosis. Discharge - Discharge Clinical Impression: Muscle spasm, Chronic pain syndrome Condition: Stable Disposition: HOME, SELF-CARE Prescriptions: Cyclobenzaprine HCl [Flexeril 10 mg Tablet] 10 mg PO QHS PRN #15 tablet PRN Reason: Hydrocodone/Acetaminophen [[place] 5-325 mg Tablet] 1 tab PO Q6H 5 Days #20 tablet Forms: Return to Work Referrals: [facility] [Provider Group] - Follow up as needed
[2020-07-09 18:32] LABS: APPEARANCE,URINE CLEAR; BILIRUBIN,URINE NEGATIVE (NEGATIVE); COLOR,URINE STRAW; GLUCOSE, URINE NEGATIVE (NEGATIVE); KETONES,URINE TRACE mg/dL (NEGATIVE); PROTEIN,URINE NEGATIVE (NEGATIVE); URINE SPECIFIC GRAVITY 1.005; UROBILINOGEN,URINE NEGATIVE mg/dL (<2.0)
[2020-07-09] MEDS ORDERED: CYCLOBENZAPRINE HCL 10 MG TABLET PO ONE (18:32)
[2020-07-09 18:55] LABS: URINE AMPHETAMINES SCREEN NEGATIVE; URINE BARBITURATES SCREEN NEGATIVE; URINE BENZODIAZEPINES SCREEN NEGATIVE; URINE COCAINE SCREEN NEGATIVE; URINE MARIJUANA (THC) SCREEN NEGATIVE; URINE METHADONE SCREEN NEGATIVE; URINE PHENCYCLIDINE SCREEN NEGATIVE
[2020-07-09 21:02] VITALS: BP 137/104
== END 2020-07-09 21:02 | disposition home or self-care (01) ==
LOC: ER 16:01
DX: M62.838 Other muscle spasm (principal); G89.4 Chronic pain syndrome; M54.9 Dorsalgia, unspecified; F17.200 Nicotine dependence, unspecified, uncomplicated; I10 Essential (primary) hypertension
CPT/HCPCS: 99285; 96372; 36415; 80307 ×2; 83735; 85025; 85610; 85730; 80053; 81001; 84484; 71045; 72110; 70450; 72125; J1885